=== PATIENT | male | born 1955 | race Caucasian/White ===

== ENCOUNTER 2016-03-12 15:21 | Inpatient (IN) | payer SELFPAY ==
[~2016-03-12] VITALS: Ht 190.5 cm; Wt 86.9 kg
[2016-03-12 17:08] VITALS: BP 106/65; PULSE 78; TEMP 98
[2016-03-12 17:10] LABS: INR 1.1 (0.8-3.0); PROTHROMBIN TIME 12.1 SECONDS (9.7-12.8)
[2016-03-12 17:12] LABS: PARTIAL THROMBOPLASTIN TIME 39.9 SECONDS (26.0-37.0)
[2016-03-12 17:28] LABS: TROPONIN-I 0.358 ng/mL (0.000-0.034)
[2016-03-12] MEDS ORDERED: ASPIRIN 32325 MG/TAB PO (17:46)
[2016-03-12 20:00] VITALS: BP 116/64; PULSE 85; TEMP 98.7
[2016-03-12 23:26] VITALS: BP 130/70; PULSE 74; TEMP 98.4
[2016-03-13] VITALS (12 sets, daily range): BP systolic 109–138; BP diastolic 52–78; PULSE 57–80; TEMP 97.9–98.2
[2016-03-13 07:24] LABS: HEMATOCRIT 37.2 % (42.0-52.0); HEMOGLOBIN 12.4 g/dl (13.5-18.0); MEAN CELL VOLUME 98 fl (80.0-100.0); MEAN CORPUSCULAR HEMOGLOBIN 33 pg (27.0-31.0); MEAN CORPUSCULAR HGB CONC 33 g/dl (33.0-37.0); MEAN PLATELET VOLUME 9.8 fl (7.4-10.4); PLATELET COUNT 201 K/mm3 (130-400); RED BLOOD COUNT 3.79 M/mm3 (4.20-5.60); REDCELL DISTRIBUTION WIDTH-CV 11.9 % (11.5-14.5)
[2016-03-13 07:24] LABS: CALCIUM 8.8 mg/dL (8.4-10.2); CREATININE, serum 0.93 mg/dL (0.66-1.25); POTASSIUM 4.1 mmol/L (3.4-5.0)
[2016-03-13 07:30] LABS: INR 1.1 (0.8-3.0)
[2016-03-13 07:33] LABS: PARTIAL THROMBOPLASTIN TIME 33.9 SECONDS (26.0-37.0)
[2016-03-13 07:39] LABS: TROPONIN-I 0.125 ng/mL (0.000-0.034)
[2016-03-13 07:55] LABS: THYROID STIMULATING HORMONE 1.67 uIU/mL (0.465-4.680)
[2016-03-13] MEDS ORDERED: LIPITOR20 MG PO (12:39)
[2016-03-13] MEDS ORDERED: TOPROL XL 25MG25 MG PO (12:40)
[2016-03-13] MEDS ORDERED: ASPIRIN E.C. 8181 MG PO (12:41)
== END 2016-03-13 15:00 | disposition home or self-care (01) | DRG 282 ==
LOC: MEDICAL 15:21
PROVIDERS: Internal Medicine Cardiovascular Disease; Nurse Practitioner Family
PROC: B2151ZZ Fluoroscopy of Left Heart using Low Osmolar Contrast (ICD-10-PCS; 2016-03-12)
PROC: B2111ZZ Fluoroscopy of Multiple Coronary Arteries using Low Osmolar Contrast (ICD-10-PCS; principal; 2016-03-13)
DX: I21.4 Non-ST elevation (NSTEMI) myocardial infarction (principal)
CPT/HCPCS: 99222-AI; 99239; C1760; C1894; J2250; J3010; J7030; Q9967